=== PATIENT | female | born 1935 | race Caucasian/White ===

== ENCOUNTER 2018-09-15 08:24 | Inpatient (IN) | payer MEDICARE ==
[~2018-09-15] VITALS: Ht 162.6 cm; Wt 63.5 kg
[~2018-09-15 08:24] MED LIST: ASPIRIN325 MG PO; LANOXIN125 MCG PO; PLAVIX75 MG PO; TUMS500 MG PO
[2018-09-15 08:48] LABS: BASOPHILS 0.3 % (0-2); EOSINOPHILS 2.8 % (0-7); HEMATOCRIT 45.3 % (36.0-48.0); HEMOGLOBIN 15.4 g/dL (12-16); IMMATURE GRANULOCYTES 0.3 % (0-5); MCH 28.7 pg (26.0-34.0); MCV 84.4 fL (80.0-100.0); MEAN PLATELET VOLUME 10.9 fL (7.4-10.4); MONOCYTES 5.4 % (2-11); NEUTROPHILS 67.2 % (40-80); RBC 5.37 10x6/uL (4.00-5.40); RDW 13.5 % (11.5-14.5); WBC 3.5 10x3/uL (4.8-10.8)
[2018-09-15 08:50] LABS: PLATELET COUNT 179 10x3/uL (130-400)
[2018-09-15 09:09] LABS: ALBUMIN 3.5 g/dL (3.4-5.0); ALKALINE PHOSPHATASE 97 U/L (46-116); ALT (SGPT) 19 U/L (10-68); BILIRUBIN - TOTAL 1.39 mg/dL (0.2-1.3); CALC OSMOLALITY 285 mosm/kg (275-300); CARBON DIOXIDE 28.6 mmol/L (21.0-32.0); CHLORIDE - SERUM 106 mmol/L (98-107); CREATININE - SERUM 0.9 mg/dL (0.6-1.3); GLUCOSE 100 mg/dL (74-106); PROTEIN - SERUM 7.3 g/dL (6.4-8.2); SODIUM 143 mmol/L (136-145); UREA NITROGEN 15 mg/dL (7-18); eGFR NON AFRICAN AMERICAN 63 mL/min (90-120)
[2018-09-15 09:20] LABS: CREATINE KINASE 85 UL (21-215); LIPASE 105 U/L (73-393); PRO BNP 385 pg/mL (0-450); THYROID STIMULATING HORMONE 5.11 uIU/mL (0.36-3.74); TROPONIN-I < 0.017 ng/mL (0.000-0.060)
[2018-09-15 09:31] LABS: UDS - AMPHET NEGATIVE QUAL (NEGATIVE); UDS - BARB NEGATIVE QUAL (NEGATIVE); UDS - BENZO NEGATIVE QUAL (NEGATIVE); UDS - COCAINE NEGATIVE QUAL (NEGATIVE); UDS - OPIATE NEGATIVE QUAL (NEGATIVE); UDS - PCP NEGATIVE QUAL (NEGATIVE); UDS - THC NEGATIVE QUAL (NEGATIVE)
[2018-09-15 09:36] VITALS: BP 190/73
[2018-09-15 10:05] LABS: APPEARANCE CLEAR (CLEAR); BILIRUBIN NEGATIVE (NEGATIVE); COLOR YELLOW (YELLOW); GLUCOSE NEGATIVE (NEGATIVE); KETONE NEGATIVE (NEGATIVE); NITRITE POSITIVE (NEGATIVE); PROTEIN NEGATIVE (NEGATIVE); UROBILINOGEN NORMAL (NORMAL)
[2018-09-15 10:06] LABS: BACTERIA MODERATE /hpf (NONE SEEN); EPITHELIAL CELLS RARE /hpf (0-5); RED CELLS - URINE RARE /hpf (0-5); WHITE CELLS - URINE RARE /hpf (0-5)
[2018-09-15] MEDS ORDERED: LISINOPRIL10 MG PO (14:24)
[2018-09-15] MEDS ORDERED: XANAX1 MG PO (14:24)
[2018-09-15] MEDS ORDERED: NORVASC5 MG PO (14:29)
[2018-09-15 17:19] VITALS: BP 209/87; BMI 24.1
[2018-09-15 21:00] VITALS: BP 174/66
[2018-09-16 06:21] LABS: ALBUMIN 3.1 g/dL (3.4-5.0); ALKALINE PHOSPHATASE 84 U/L (46-116); ALT (SGPT) 15 U/L (10-68); BILIRUBIN - TOTAL 1.02 mg/dL (0.2-1.3); CALC OSMOLALITY 286 mosm/kg (275-300); CALCIUM 8.7 mg/dL (8.5-10.1); CARBON DIOXIDE 26.7 mmol/L (21.0-32.0); CHLORIDE - SERUM 106 mmol/L (98-107); CHOL - HDL RATIO 3.2 ratio (2.3-4.1); CHOLESTEROL, TOTAL 214 mg/dL (0-200); CREATININE - SERUM 0.9 mg/dL (0.6-1.3); GLUCOSE 106 mg/dL (74-106); HDL CHOLESTEROL 66 mg/dL (32-96); LDL CHOLESTEROL 125 mg/dL (0-100); LDL-HDL RATIO 1.9 ratio (1.5-3.5); POTASSIUM - SERUM 3.7 mmol/L (3.5-5.1); PROTEIN - SERUM 6.6 g/dL (6.4-8.2); SODIUM 143 mmol/L (136-145); THYROID STIMULATING HORMONE 3.84 uIU/mL (0.36-3.74); TRIGLYCERIDE 117 mg/dL (30-200); UREA NITROGEN 18 mg/dL (7-18); eGFR NON AFRICAN AMERICAN 63 mL/min (90-120)
[2018-09-16 06:59] LABS: DIGOXIN < 0.20 ng/mL (0.90-2.00)
[2018-09-16 08:00] VITALS: BP 162/75
[2018-09-16 08:05] VITALS: BMI 24.0
[2018-09-16 11:07] VITALS: Ht 162.6 cm; Wt 63.5 kg
[2018-09-16 20:23] VITALS: BP 140/75
[2018-09-17 07:16] LABS: FOLATE (FOLIC ACID) - SERUM 18.5 ng/mL (>3.0)
[2018-09-17 09:00] VITALS: BP 169/76
[2018-09-17 10:19] VITALS: BP 169/76
--- NOTE | 2018-09-17 14:20 | PSY ---
PATIENT NAME:AMISH LOBATO MEDICAL RECORD: [id number] : 37 LOCATION:[facility] ADMISSION DATE: 09/15/18 ACCOUNT: [id number] PSYCHIATRIC EVALUATION DATE OF EVALUATION: 09/16/18 IDENTIFYING DATA: The patient is 83 years old and she is admitted to the hospital on a voluntary basis. CHIEF COMPLAINT: Hallucinations. HISTORY OF PRESENT ILLNESS: The patient has been calling the police. She is calling the police and reporting that she is seeing people prowling around her house or property. The police cannot find any evidence of this. They had been called multiple times by this woman for reasons that do not appear to be completely imaginary. The police finally called the EMS services and the patient was seen to be actively hallucinating both visually and auditorily. The patient does have a history of schizophrenia and has been noncompliant with her medications. She has a son who lives with her and apparently he is disabled as well. She has not been receiving her medications and does not know what they are. She also is clearly impaired cognitively in addition to having an apparent history of mental illness. PAST MEDICAL HISTORY: Significant for hypertension and congestive heart failure. PAST PSYCHIATRIC HISTORY: Significant for a history of schizophrenia, but she does not relate previous history of psychiatric treatment to me. FAMILY HISTORY: Negative for mental illness by her account. ALLERGIES: No known drug allergies. CURRENT MEDICATIONS: Include Zestril, aspirin, Norvasc, Lanoxin, Plavix, and Xanax. SOCIAL HISTORY: The patient is . She has 3 adult children and one of them lives locally and she lives with him or he lives with her. She denies a history of drug or alcohol abuse. MENTAL STATUS EXAMINATION: The patient is awake, alert, and oriented to person and place, but not to time or situation. She does not know the date and she is confused about the circumstances that brought her here. She has a mood that is flat and an affect that is constricted. Thought processes are circumstantial. Memory, concentration, and abstraction abilities are moderately impaired. She denies any active intent to harm herself or others as well as any current psychotic symptoms. ASSETS: Supportive family members. LIABILITIES: Limited insight. 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 AXIS II: None. AXIS III: Hypertension and congestive heart failure. AXIS IV: Moderate. AXIS V: Global assessment of functioning is 35. PLAN: At this time, the patient is admitted to the hospital secondary to psychotic symptoms, which are associated with either a thinking disorder such as schizophrenia or a dementia such as Alzheimer's. I am not sure which condition is most closely related to the psychotic symptoms, but I am certain that she also has a dementing illness whether or not she has any other condition. She seems to genuinely not have any knowledge of her psychiatric history, yet it is listed in the Emergency Room as her having a long history of schizophrenia. I am not sure where that information was obtained. At this point, I am going to start her on a low dose of an antipsychotic medicine to assist with her thought disorganization. She will be monitored for clinical changes. Her long-term prognosis is guarded. TRANSINT:[id number] Voice Confirmation ID: [id number] DOCUMENT ID: [id number] XIOMARA CORONA MD at 1420 CC: [id number] DICTATION DATE: 09/16/18 1540 OPTOMETRIST ASSISTANT: 09/16/18 1633 ADM IN [facility] [address] [place] [address]
[2018-09-17 20:05] VITALS: BP 121/80
[2018-09-18 08:45] VITALS: BP 174/59
--- NOTE | 2018-09-18 15:29 | PN ---
PATIENT:AMISH LOBATO MEDICAL RECORD: [id number] LOCATION:[facility] ADMISSION DATE: 09/15/18 PROGRESS NOTE DATE OF SERVICE: 09/17/2018 SUBJECTIVE: The patient's case was discussed with staff. She has no new complaint. OBJECTIVE: The patient is not showing any overt psychotic symptoms today. She has limited insight about her condition. She does tell me that her son came to live with her 6 years ago, it was supposed to be temporary, but he has been there for 6 years. She tells me that her son refuses to leave even though she has asked him to do so. She says that she is afraid of him that he drinks heavily, smokes marijuana, and mistakes or overtakes his prescription medications. She says he often becomes angry, yells, curses, even breaks things in the house, but she says he has not assaulted her. She very much wants him to leave. ASSESSMENT: No change in diagnoses. PLAN: The patient will be started on Aricept for its memory enhancing properties. I am going to discuss the situation with her son at our next treatment team meeting to see what can be done if anything. I suspect that a call to the adult foundry worker general for the [facility] would probably be in order. TRANSINT:[id number] Voice Confirmation ID: [id number] DOCUMENT ID: [id number] XIOMARA CORONA MD at 1529 CC: [id number] DICTATION DATE: 09/17/18 1446 PERFORMANCE ARCHITECT: 09/17/18 1457 ADM IN [address] [place] [address]
[2018-09-18 19:46] VITALS: BP 152/61
[2018-09-19 08:00] VITALS: BP 131/64
--- NOTE | 2018-09-19 13:46 | PN ---
PATIENT:MI LOBATO MEDICAL RECORD: [id number] LOCATION:[facility] ADMISSION DATE: 09/15/18 PROGRESS NOTE DATE OF SERVICE: 09/18/2018 SUBJECTIVE: The patient's case was discussed with staff. She has no new complaints. OBJECTIVE: The patient is only partially oriented. She is wanting to go home, but says that she will agree to stay and allow me to treat her. She just wants to go home as soon as it is reasonably possible. Of course, this is true of every patient. This is included in this dictation because apparently the patient's son who is mentally ill is calling administration and saying we are holding her against her, which is just simply not true. This is the same man who called and wanted to our social service assistant after first telling her that he was going to have the FBI shut down the hospital. Clearly, he is impaired. The patient Mi Lobato says that her son is overtaking his psychiatric medicines, drinking excessively, and that she is afraid of him. Adult protective services is involved in the case at this point. She says he has never actually hurt her, but she is afraid of him because when he becomes intoxicated he yells, he screams, he curses, and he hit his hand and fist against the cabinet table and caraballo and sometimes even breaks things in the house. She says she has called the police to have him removed, but the police have told her that she just needs to tell him to go which she is afraid to do because of how he might react. She was observed yesterday talking to persons not present and behaving in a paranoid and suspicious way. She is only partially oriented. She has a concrete abstraction. She has impaired short term and long-term memory and her thought processes are disorganized. ASSESSMENT: The patient clearly has dementia. I believe it is of the Alzheimer's type. PLAN: I am not entirely sure the patient has a thinking disorder. When questioned about schizophrenia and other psychiatric treatment, she denies it. She has a few symptoms that would be consistent with schizophrenia, but they would also be possible to have when a person is also demented. Whether or not she has schizophrenia is still something of a mystery. I only saw this mentioned in a dictation from the Emergency Room. Her son who is completely unreliable denies it. She also denies it. Nevertheless, she clearly has a dementia. I believe it is of the Alzheimer's type. I do not believe she is capable of making reasonable informed consent decisions and I do not think it is safe for her to be at home with this man that she is afraid of. Again, the proper authorities are being notified. If she can abstain from any bizarre psychotic symptoms another day, I will release her. Followup would need to be with her primary care physician or outpatient psychiatrist. I am going to keep her on the antipsychotic medications, having weighed the relative risk and benefit of it. I also have her on a cholinesterase inhibitor for her memory impairment. TRANSINT:[id number] Voice Confirmation ID: [id number] DOCUMENT ID: [id number] PROGRESS NOTE [id number] MI LOBATO, XIOMARA LOZANO at 1346 CC: [id number] DICTATION DATE: 09/18/18 1551 SUPERVISOR BOATBUILDERS WOOD: 09/18/18 2352 ADM IN [facility] [address] [place] [address]
[2018-09-19 21:16] VITALS: BP 118/49
[2018-09-20 08:00] VITALS: BP 186/74
--- NOTE | 2018-09-20 11:13 | PN ---
PATIENT:AMISH LOBATO MEDICAL RECORD: [id number] LOCATION:[facility] ADMISSION DATE: 09/15/18 PROGRESS NOTE DATE OF SERVICE: 09/19/2018 SUBJECTIVE: The patient's case was discussed with staff. She has no new complaint. OBJECTIVE: The patient is not eating very well, but I am going to wait and observe this a little longer before I start to give her Megace. She slept 11 hours last night, which is a little excessive. I am not sure if it is related to this very low dose of Klonopin, but I am going to observe that as well. She is very anxious to go home, but is not demanding to do so and when I explained to her what I am going to do and why, she is very agreeable to staying. Her son on the other hand is problematic. He calls here numerous times a day and often behaves in a very bizarre and inappropriate manner. She continues to say that he has not assaulted her, but that she is afraid of him for reasons that I have already documented. He drinks too much. He overtakes his psychiatric medicines. He becomes angry and has outbursts where he breaks things in the house, curses at her, beats his hand or fist on the caraballo or cabinets and this is quite distressing to her. She wants him out of the house, but does not know how to make that happen. She says she has called the Dividing Machine Operator's Department or the police and they have not really been helpful at least as far as what she says or how she sees it. TRANSINT:[id number] Voice Confirmation ID: [id number] DOCUMENT ID: [id number] XIOMARA CORONA MD at 1113 CC: [id number] DICTATION DATE: 09/19/18 1510 OPERATIONS SUPPORT PROFESSIONALS: 09/19/18 2140 ADM IN [place] [id number] [place] [address]
[2018-09-20 22:06] VITALS: BP 132/70
--- NOTE | 2018-09-21 13:23 | PN ---
PATIENT:AMISH LOBATO MEDICAL RECORD: [id number] LOCATION:[facility] ADMISSION DATE: 09/15/18 PROGRESS NOTE DATE OF SERVICE: 09/20/2018 SUBJECTIVE: The patient's case was discussed with staff. She has no new complaint. OBJECTIVE: The patient is eating reasonably well, but is not taking her medications. When asked about this, she cannot give an explanation except to say she thinks she is on too much medicine; but when asked about anyone in particular where I offered to review them with her, she declines. Unfortunately, I think she probably has a history of not taking her medications. It is probably something that she regularly does at home. This is problematic given her lack of supervision and her dementia. I am going to reduce the dose of her Xanax slightly. Her long-term prognosis is guarded. TRANSINT:[id number] Voice Confirmation ID: [id number] DOCUMENT ID: [id number] XIOMARA CORONA MD at 1323 CC: [id number] DICTATION DATE: 09/20/18 1121 BUILDING MAINTENANCE TECHNICIAN: 09/20/18 1532 ADM IN [facility] [address] [place] [id number]
--- NOTE | 2018-09-22 10:58 | PN ---
PATIENT:AMISH LOBATO MEDICAL RECORD: [id number] LOCATION:[facility] ADMISSION DATE: 09/15/18 PROGRESS NOTE DATE OF SERVICE: 09/21/2018 The patient's case was discussed with staff. She has no new complaint. The patient is partially oriented but not aggressive and is not showing any psychotic symptoms today. She continues to say that she is afraid of her son and wants him out of her house, just she said before. The son has shown up today and asked that his mother be discharged to him. She has been asked about this and says yes she wants to go home with him. I am not sure how to reconcile this since she has been saying that she wants him out of the house and that she is afraid of him that he has not actually assaulted her, but he gets drunk and yells and beats on the wall or breaks things and she is frightened of him, but he has not assaulted her or threatened her. Nevertheless, she wants to go home with him. She is saying this with him off the unit and being told that he can be kept off the unit and she can be protected from him, but she still wants to go home. She is clearly impaired in a very serious manner. I am not at all happy about the home situation with a man who is clearly mentally ill. He has asked one of our staff members to him. He has asked another to go away on a trip with him and he sent a nurse pena today. Asking about marriage and going on trips were contextually not a joke even if it is inappropriate and not a funny joke. This man is clearly mentally ill and was serious with these offers. Discussing the situation with the treatment team. I have decided that I am going to let her go home, but it will be against medical advice. I do not think she currently meets criteria for an involuntary commitment and involving adult protective services is something that I will have to do as an outpatient. I am going to make a report to adult protective services regarding her and ask for a home visit. She may well reappear here in the future since one of the things she was doing was repeatedly calling the police about things that were delusional or confused. I do not think she is going to take her medicines in a consistent way and leaving against medical advice she is not going to receive prescriptions or followup. She understands all these things or at least they have been told to her and she says she understands them and she still wants to go home with her son. She will be discharged today against medical advice. TRANSINT:[id number] Voice Confirmation ID: [id number] DOCUMENT ID: [id number] XIOMARA CORONA MD at 1058 CC: [id number] DICTATION DATE: 09/21/181416 TIRE TESTER: 09/21/18 2300 DIS IN 09/21/18 [id number] [place] [address]
--- NOTE | 2018-09-24 15:00 | DS ---
PATIENT:AMISH LOBATO :37 MEDICAL RECORD: [id number] DISCHARGE SUMMARY ADMISSION DATE: 09/15/18 DISCHARGE DATE: 09/21/18 IDENTIFYING DATA: The patient is 83 years old and she is admitted to the hospital on a voluntary basis because of hallucinations. HISTORY OF PRESENT ILLNESS: The patient has been calling the police and reporting that she is seeing people prowling about her house or yard. The police cannot find any evidence of this. She has apparently called the police multiple times for reasons that appear to be entirely imaginary. The police have called an ambulance and they brought her to the Emergency Room where she was actively responding to visual and auditory hallucinations and she was subsequently referred to us. There is documentation from the Emergency Room physician that she has a history of schizophrenia, but I cannot confirm that and she actually denies it. The patient was admitted to the hospital for evaluation and treatment. HOSPITAL COURSE: The patient was admitted to the hospital and fully evaluated from both a medical, psychological, and social standpoint. She had clear evidence of cognitive impairment of a progressive nature entirely consistent with an Alzheimer dementia. Based upon this and the type of delusions and hallucinations she has and her denial of any previous psychiatric treatment and her sincere puzzlement about never having even heard the word schizophrenia, I believe that the patient is not chronically mentally ill, but suffering from a dementia of the Alzheimer's type. Furthermore, she very quickly lost the psychotic symptoms when she was in a supportive and structured environment and continued to show evidence of cognitive impairment, further substantiating my belief that the symptoms are related to a progressive dementia and not an underlying thinking disorder. The patient did indicate on multiple occasions that she has an adult son living with her and that he is mentally ill that he does not take his medicines on occasion and that on other occasions, he overtakes them and consumes alcohol with them. He also becomes very angry. She says he has never threatened her or assaulted her and she was asked about this multiple times. She does say that she is afraid of him because he becomes so angry and often will curse or pound his hand or fists on the table or caraballo and on occasion he has even broken things in the house when he was in a rage. She wants him to leave the house. The treatment team was in the process of trying to assist her with this when she decided she wanted to be discharged to his care. It was explained to her that this was not recommended, but she insisted and she was subsequently discharged from the hospital against medical advice since there was not a commitment criteria based upon [place] statute and there was no evidence that she was in acute eminent danger since she had repeatedly stated that he had never abused her, threatened her, or even injured her. It is just that his behaviors frighten her. 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 AXIS II: None. AXIS III: Hypertension, congestive heart failure. AXIS IV: Moderate. AXIS V: Global assessment of functioning 40. PLAN: At the time of discharge, the patient was in good behavioral control and showed no evidence of acute or direct dangerousness to herself or others. She DISCHARGE SUMMARY REPORT [id number] AMISH LOBATO is going to be reported to adult protective services, so that they can perform a home welfare check. Again, the psychotic symptoms have disappeared. The son, who is bizarre, is not threatening her and has never assaulted her or threatened her and there is no evidence that he mistreats her or abuses her and so she was discharged to his care because that is what she wanted. Because she was discharged against medical advice, she was not given prescriptions and she will be responsible for finding her own followup care. There already has been a report made to adult protective services. TRANSINT:[id number] Voice Confirmation ID: [id number] DOCUMENT ID: [id number] XIOMARA CORONA MD at 1500 CC: [id number] DICTATION DATE: 09/23/[address] MARKER INSTALLER: 09/23/18 2321 DIS IN 09/21/[address] [facility] [address] [place] [id number]
== END 2018-09-21 09:25 | disposition left against medical advice (07) | DRG 57 ==
LOC: D.ER 08:24 → D.PSYCH 10:35
PROVIDERS: Family Medicine; ADMIT Psychiatry & Neurology Psychiatry
DX: G30.1 Alzheimer's disease with late onset (principal); F02.81 Dementia in other diseases classified elsewhere, unspecified severity, with behavioral disturbance; F01.51 Vascular dementia, unspecified severity, with behavioral disturbance; N39.0 Urinary tract infection, site not specified; I69.319 Unspecified symptoms and signs involving cognitive functions following cerebral infarction; E03.9 Hypothyroidism, unspecified; E78.5 Hyperlipidemia, unspecified; I11.0 Hypertensive heart disease with heart failure; I50.9 Heart failure, unspecified; F20.9 Schizophrenia, unspecified; F41.9 Anxiety disorder, unspecified

== ENCOUNTER 2019-02-10 13:21 | Emergency (ER) | payer MEDICARE, MEDICAID ==
[~2019-02-10] VITALS: Ht 162.6 cm; Wt 75.0 kg
[~2019-02-10 13:21] MED LIST changes: +LISINOPRIL10 MG PO; +NORVASC5 MG PO; +XANAX1 MG PO
[2019-02-10 13:33] VITALS: BP 182/73; Ht 162.6 cm; Wt 75.0 kg
[2019-02-10] MEDS ORDERED: CELEXA20 MG PO (14:23)
[2019-02-10] MEDS ORDERED: PRINIVIL10 MG PO (14:23)
[2019-02-10] MEDS ORDERED: DEBROX OTIC15 ML LEFT EAR (14:23)
== END 2019-02-10 15:17 | disposition home or self-care (01) ==
LOC: D.ER 13:21
DX: F41.9 Anxiety disorder, unspecified (principal); I10 Essential (primary) hypertension; H61.22 Impacted cerumen, left ear; H93.19 Tinnitus, unspecified ear

== ENCOUNTER 2021-01-10 13:46 | Inpatient (IN) | payer MEDICARE ==
[~2021-01-10] VITALS: Ht 162.6 cm; Wt 63.5 kg
[~2021-01-10 13:46] MED LIST changes: +CELEXA20 MG PO; +DEBROX OTIC15 ML LEFT EAR; +PRINIVIL10 MG PO
[2021-01-10 14:52] LABS: BILIRUBIN NEGATIVE (NEGATIVE); KETONE NEGATIVE (NEGATIVE); NITRITE POSITIVE (NEGATIVE); UROBILINOGEN NORMAL mg/dL (< 2)
[2021-01-10 15:00] LABS: BACTERIA MANY HPF (NONE SEEN); SQUAMOUS EPITHELIAL 0-5 HPF (0-4); WHITE CELLS - URINE 0-5 HPF (0-4)
[2021-01-10 15:04] LABS: CALC OSMOLALITY 281 mosm/kg (275-300); CALCIUM 9.8 mg/dL (8.5-10.1); CARBON DIOXIDE 25.9 mmol/L (21.0-32.0); CHLORIDE - SERUM 104 mmol/L (98-107); CREATININE - SERUM 1.1 mg/dL (0.6-1.3); GLUCOSE 112 mg/dL (74-106); POTASSIUM - SERUM 3.6 mmol/L (3.5-5.1); SODIUM 139 mmol/L (136-145); UREA NITROGEN 21 mg/dL (7-18); eGFR NON AFRICAN AMERICAN 50 mL/min (90-120)
[2021-01-10 15:07] LABS: BASOPHILS 0 % (0-2); EOSINOPHILS 2.2 % (0-7); HEMATOCRIT 40.3 % (36.0-48.0); HEMOGLOBIN 13.1 g/dL (12-16); LYMPHOCYTE ABS# 0.83 10x3/uL (1.18-3.74); LYMPHOCYTES 20.7 % (15-50); MCH 26.5 pg (26.0-34.0); MCHC 32.5 g/dL (31.0-37.0); MCV 81.6 fL (80.0-100.0); MEAN PLATELET VOLUME 10.6 fL (7.4-10.4); MONOCYTES 8.7 % (2-11); NEUTROPHIL ABS# 2.74 10x3/uL (1.56-6.13); NEUTROPHILS 68.4 % (40-80); RBC 4.94 10x6/uL (4.00-5.40); RDW 14.5 % (11.5-14.5)
[2021-01-10 15:10] LABS: APTT 29.4 SECONDS (22.8-39.4); INR 1.12 (0.85-1.17); PLATELET COUNT 233 10x3/uL (130-400); PROTIME 13.3 SECONDS (11.6-15.0)
[2021-01-10 15:16] VITALS: BP 214/66
[2021-01-10 15:17] VITALS: BP 205/68
[2021-01-10 15:19] LABS: ALBUMIN 3.1 g/dL (3.4-5.0); ALKALINE PHOSPHATASE 91 U/L (30-120); ALT (SGPT) 15 U/L (10-68); BILIRUBIN - TOTAL 0.87 mg/dL (0.2-1.3); CKMB 0.8 U/L (0.0-3.6); CREATINE KINASE 30 UL (21-215); MAGNESIUM - SERUM 2.1 mg/dL (1.8-2.4); PROTEIN - SERUM 7.4 g/dL (6.4-8.2); TROPONIN-I < 0.017 ng/mL (0.000-0.060)
[2021-01-10 16:16] LABS: UDS - AMPHET NEGATIVE QUAL (NEGATIVE); UDS - BARB NEGATIVE QUAL (NEGATIVE); UDS - BENZO NEGATIVE QUAL (NEGATIVE); UDS - COCAINE NEGATIVE QUAL (NEGATIVE); UDS - OPIATE NEGATIVE QUAL (NEGATIVE); UDS - PCP NEGATIVE QUAL (NEGATIVE); UDS - THC NEGATIVE QUAL (NEGATIVE)
[2021-01-10 20:19] VITALS: BP 158/49; BMI 24.0
--- NOTE | 2021-01-10 20:56 | NUR ---
COMPLETED ADDMISSION ASSES AND H/O WELL POSSIBLE, PT VERY POOR HISTORIAN. FALL PRECAUTIONS IN PLACE, BED ALARM ON, TI ON, YELLOW BRACLET, YELLOW GOWN ON. SCD'S ON AND ISP AT BEDSIDE.
[2021-01-11 04:00] VITALS: BP 135/60
[2021-01-11 06:28] LABS: BASOPHILS 0.3 % (0-2); EOSINOPHILS 2.3 % (0-7); HEMOGLOBIN 11.9 g/dL (12-16); LYMPHOCYTE ABS# 0.61 10x3/uL (1.18-3.74); LYMPHOCYTES 17.7 % (15-50); MCH 26.1 pg (26.0-34.0); MCHC 32.2 g/dL (31.0-37.0); MCV 81.1 fL (80.0-100.0); MEAN PLATELET VOLUME 10.9 fL (7.4-10.4); MONOCYTES 11.6 % (2-11); NEUTROPHIL ABS# 2.34 10x3/uL (1.56-6.13); NEUTROPHILS 68.1 % (40-80); PLATELET COUNT 229 10x3/uL (130-400); RBC 4.56 10x6/uL (4.00-5.40); RDW 14.4 % (11.5-14.5); WBC 3.4 10x3/uL (4.8-10.8)
[2021-01-11 06:42] LABS: ALBUMIN 2.5 g/dL (3.4-5.0); ANION GAP 14.5 mmol/L (8-16); BILIRUBIN - TOTAL 0.58 mg/dL (0.2-1.3); CALCIUM 8.8 mg/dL (8.5-10.1); MAGNESIUM - SERUM 2.1 mg/dL (1.8-2.4); POTASSIUM - SERUM 3.5 mmol/L (3.5-5.1); PROTEIN - SERUM 6.3 g/dL (6.4-8.2)
--- NOTE | 2021-01-11 07:24 | NUR ---
PATIENT SAYS HER SON GIVES HER TOO MUCH MEDICINE AND IS ON DRUGS. DAUGHTER IS SYDNIE AND CAN COMMUNICATE HER NEEDS. SHE IS RESTING IN BED AT THIS TIME.
[2021-01-11 09:12] VITALS: BP 145/58
[2021-01-11 13:46] VITALS: BP 142/56
[2021-01-11 14:42] VITALS: BMI 24.0
[2021-01-11 17:33] VITALS: BP 164/53
[2021-01-11 23:19] VITALS: BP 180/100
--- NOTE | 2021-01-12 01:34 | NUR ---
PT WAS FOUND ON LAYING ON THE GROUND SAYING THAT THEY TOLD HER SHE NEEDED TO LAY ON THE FLOOR. SHE HAD SOME SORT OF ALUCINATION AND WAS ANXIOUS AND AGITATED. PT WAS HELPED TO STAND AND WALKED TO BED. I WAS ABLE TO GET PATIENT CLEAN DUE TO URINE AND BOWEL MOVEMENT IN HER OWN CLOTHES. PT APPROVED TO GET AN IV 20G PLACE IN HER RWRIST NS@75ML. MANUAL BP 180/100 TELESALES SUPERVISOR CONTACTED AND PRESCRIBED APRISOLINE TO BRING BP DOWN.
--- NOTE | 2021-01-12 05:14 | NUR ---
I have reviewed this patient and I concur with the Shift Assessment completed by the Licensed Practical Nurse today this shift.
[2021-01-12 05:29] LABS: BASOPHILS 0 % (0-2); HEMATOCRIT 34.4 % (36.0-48.0); HEMOGLOBIN 11.2 g/dL (12-16); IMMATURE GRANULOCYTES 0.3 % (0-5); LYMPHOCYTE ABS# 0.53 10x3/uL (1.18-3.74); LYMPHOCYTES 17.3 % (15-50); MCH 26.4 pg (26.0-34.0); MCHC 32.6 g/dL (31.0-37.0); MCV 81.1 fL (80.0-100.0); MEAN PLATELET VOLUME 10.8 fL (7.4-10.4); MONOCYTES 4.6 % (2-11); NEUTROPHIL ABS# 2.33 10x3/uL (1.56-6.13); NEUTROPHILS 75.8 % (40-80); PLATELET COUNT 211 10x3/uL (130-400); RBC 4.24 10x6/uL (4.00-5.40); RDW 14.6 % (11.5-14.5); WBC 3.1 10x3/uL (4.8-10.8)
[2021-01-12 05:53] LABS: ALBUMIN 2.6 g/dL (3.4-5.0); ANION GAP 15.4 mmol/L (8-16); BILIRUBIN - TOTAL 0.57 mg/dL (0.2-1.3); CALCIUM 8.5 mg/dL (8.5-10.1); CARBON DIOXIDE 20.5 mmol/L (21.0-32.0); CREATININE - SERUM 0.9 mg/dL (0.6-1.3); MAGNESIUM - SERUM 1.9 mg/dL (1.8-2.4); POTASSIUM - SERUM 3.9 mmol/L (3.5-5.1); PROTEIN - SERUM 5.6 g/dL (6.4-8.2)
--- NOTE | 2021-01-12 07:26 | NUR ---
RECIEVED BEDSIDE REPORT. IN BED RESTING. FREE FROM SIGNS OF DISTRESS. BED LOW POSITION, CALL LIGHT IN REACH. PT CONFUSED X4. TI ALARMON. WILL CONTINUE TO MONITOR.
[2021-01-12 10:42] VITALS: BP 148/53
[2021-01-12 13:29] VITALS: BP 157/57
[2021-01-12 17:41] VITALS: BP 128/90
[2021-01-12 20:35] VITALS: BP 163/54
--- NOTE | 2021-01-13 00:12 | NUR ---
I have reviewed this patient and I concur with the Shift Assessment completed by the Licensed Practical Nurse today this shift.
[2021-01-13 01:01] VITALS: BP 163/63
--- NOTE | 2021-01-13 01:01 | NUR ---
PT RESTING IN BED WITH EYES CLOSED. BED ALARM ON, NO SIGNS OF DISTRESS. PT HAS BEEN OFFERED MULTIPLE TIMES TO DRINK SOME WATER OR STAND TO THE RESTROOM AND SHE HAS DENIED. WILL CONT TO MONITOR.
[2021-01-13 05:53] VITALS: BP 153/52
[2021-01-13 07:11] LABS: BASOPHILS 0.3 % (0-2); EOSINOPHILS 3.6 % (0-7); HEMATOCRIT 38.3 % (36.0-48.0); HEMOGLOBIN 12.4 g/dL (12-16); IMMATURE GRANULOCYTES 0.3 % (0-5); LYMPHOCYTES 16.4 % (15-50); MCH 26.3 pg (26.0-34.0); MCHC 32.4 g/dL (31.0-37.0); MCV 81.1 fL (80.0-100.0); MEAN PLATELET VOLUME 10.3 fL (7.4-10.4); MONOCYTES 5.9 % (2-11); NEUTROPHIL ABS# 2.23 10x3/uL (1.56-6.13); NEUTROPHILS 73.5 % (40-80); RBC 4.72 10x6/uL (4.00-5.40); RDW 14.4 % (11.5-14.5)
[2021-01-13 07:18] LABS: PLATELET COUNT 257 10x3/uL (130-400)
[2021-01-13 07:37] LABS: ALBUMIN 2.7 g/dL (3.4-5.0); ANION GAP 13.9 mmol/L (8-16); BILIRUBIN - TOTAL 0.47 mg/dL (0.2-1.3); CREATININE - SERUM 1.1 mg/dL (0.6-1.3); MAGNESIUM - SERUM 1.9 mg/dL (1.8-2.4); POTASSIUM - SERUM 3.9 mmol/L (3.5-5.1); PROTEIN - SERUM 6.5 g/dL (6.4-8.2)
--- NOTE | 2021-01-13 07:37 | NUR ---
RECIEVED BEDSIDE REPORT. SITTING UP AT SIDE OF BED. TALKING TO SON ON TELEPHONE. DENIES NEEDS AT THIS TIME. BED LOW POSITION, CALL LIGHT IN REACH. WILL CONTINUE TO MONITOR.
[2021-01-13 08:52] VITALS: BP 139/77
[2021-01-13 11:45] VITALS: BP 139/52
--- NOTE | 2021-01-13 15:38 | NUR ---
HOME ENERGY AUDITOR LIGHT. UP TO BATHROOM, BACK TO BED. DENIES FURTHER NEEDS. WILL CONTINUE TO MONITOR.
[2021-01-13 16:50] VITALS: BP 139/55
[2021-01-14 05:20] LABS: BASOPHILS 0.3 % (0-2); EOSINOPHILS 5.6 % (0-7); HEMATOCRIT 36.1 % (36.0-48.0); HEMOGLOBIN 11.6 g/dL (12-16); IMMATURE GRANULOCYTES 0.3 % (0-5); LYMPHOCYTE ABS# 0.59 10x3/uL (1.18-3.74); LYMPHOCYTES 19.5 % (15-50); MCHC 32.1 g/dL (31.0-37.0); MCV 80.8 fL (80.0-100.0); MEAN PLATELET VOLUME 10.5 fL (7.4-10.4); MONOCYTES 6.6 % (2-11); NEUTROPHIL ABS# 2.05 10x3/uL (1.56-6.13); NEUTROPHILS 67.7 % (40-80); PLATELET COUNT 254 10x3/uL (130-400); RBC 4.47 10x6/uL (4.00-5.40); RDW 14.3 % (11.5-14.5)
[2021-01-14 05:52] LABS: ALBUMIN 2.5 g/dL (3.4-5.0); ANION GAP 13.1 mmol/L (8-16); BILIRUBIN - TOTAL 0.38 mg/dL (0.2-1.3); CALCIUM 8.8 mg/dL (8.5-10.1); CARBON DIOXIDE 23.6 mmol/L (21.0-32.0); MAGNESIUM - SERUM 1.8 mg/dL (1.8-2.4); POTASSIUM - SERUM 3.7 mmol/L (3.5-5.1)
--- NOTE | 2021-01-14 07:27 | NUR ---
RECIEVED BEDSIDE REPORT. IN BED SLEEPING, AROUSES TO VOICE. BED ALARM ON. BED LOW POSITION, CALL LIGHT IN REACH. FREE FROM SIGNS OF DISTRESS. WILL CONTINUE TO MONITOR.
[2021-01-14 10:56] VITALS: BP 100/49
--- NOTE | 2021-01-14 12:07 | NUR ---
SENT [facility], A TEXT PAGE ABOUT HOW PATIENT HEART RATE WOULD DROP INTO HIGH 50'S. ALSO NOTIFIED THAT DIGOXIN WAS HELD FOR HEART RATE OF 58. PATIENT FREE FROM SIGNS OF DISTRESS AT THIS TIME.
[2021-01-14 14:36] VITALS: BP 142/58
[2021-01-14 17:43] VITALS: BP 149/48
[2021-01-15 06:00] LABS: BASOPHILS 0.3 % (0-2); EOSINOPHILS 3.8 % (0-7); HEMATOCRIT 36.2 % (36.0-48.0); HEMOGLOBIN 11.7 g/dL (12-16); IMMATURE GRANULOCYTES 0.3 % (0-5); LYMPHOCYTE ABS# 0.65 10x3/uL (1.18-3.74); LYMPHOCYTES 19.2 % (15-50); MCH 25.9 pg (26.0-34.0); MCHC 32.3 g/dL (31.0-37.0); MCV 80.1 fL (80.0-100.0); MEAN PLATELET VOLUME 10.1 fL (7.4-10.4); MONOCYTES 5.9 % (2-11); NEUTROPHIL ABS# 2.38 10x3/uL (1.56-6.13); NEUTROPHILS 70.5 % (40-80); PLATELET COUNT 248 10x3/uL (130-400); RBC 4.52 10x6/uL (4.00-5.40); RDW 14.3 % (11.5-14.5); WBC 3.4 10x3/uL (4.8-10.8)
[2021-01-15 06:27] LABS: ALBUMIN 2.5 g/dL (3.4-5.0); ANION GAP 15.2 mmol/L (8-16); BILIRUBIN - TOTAL 0.39 mg/dL (0.2-1.3); CALCIUM 8.4 mg/dL (8.5-10.1); CARBON DIOXIDE 23.3 mmol/L (21.0-32.0); MAGNESIUM - SERUM 1.7 mg/dL (1.8-2.4); POTASSIUM - SERUM 3.5 mmol/L (3.5-5.1); PROTEIN - SERUM 5.6 g/dL (6.4-8.2)
[2021-01-15 08:52] VITALS: BP 178/56
--- NOTE | 2021-01-15 08:54 | CN ---
PATIENT NAME:AMISH LOBATO MEDICAL RECORD: [id number] : 37 LOCATION:D[facility]27 ADMIT DATE: 01/10/21 ACCOUNT: [id number] CONSULTING PHYSICIAN: XIOMARA CORONA MD REFERRING PHYSICIAN: DARWIN BLACK MD DATE OF CONSULTATION: 01/11/2021 IDENTIFYING DATA: The patient is 85 years old and she was admitted to the hospital secondary to confusion. CHIEF COMPLAINT: None. HISTORY OF PRESENT ILLNESS: The patient is a very nice elderly woman. Her first language apparently is Portuguese, but she does speak Irish, but she will start talking and then lapse into Portuguese, but with redirection she goes back to Irish. She is interviewable. She clearly is impaired cognitively and it is not a new process and it is advanced. I do not see any evidence that she has been diagnosed with dementia, but it is present. She has no aggressive behavior, no thoughts of harming herself and others and there was some difficulty trying to communicate hallucinations to her, but there is no evidence that she is having hallucinations either. Based on this, she does not meet criteria for an inpatient mental health stay. ASSESSMENT: Major neurocognitive disorder. PLAN: The patient's lack of direct active dangerousness to herself is unfortunately not going to allow me to refer to admit her to the behavioral unit. She most certainly has a dementia, most certainly is probably adversely impacted by her urinary tract infection and then there are bigger questions that need to be decided and looked into from a healthcare social worker standpoint. She is . She told me the name of a man that lives with her, but I think that is her son. She needs assistance with supervision and care and medications and monitoring and these are certainly very important things to her safety, but they do not alone allow me to justify her admission to behavioral unit. If there are additional factors that I am not aware of that might justify her admission, please reconsult. I am going to start her on medication for her dementia. vice president consulting services would again be the most appropriate route to ensure that she is receiving the proper care. TRANSINT:[id number] Voice Confirmation ID: [id number] DOCUMENT ID: [id number] XIOMARA CORONA MD at 0854 CC: [id number] DICTATION DATE: 01/11/21 1645 WINDOW AND DOOR INSTALLER: 01/11/212035 ADM IN [facility] [address] [place] [id number]
--- NOTE | 2021-01-15 10:05 | NUR ---
PT RESTING QUIETLY IN BED. RESP EVEN AND UNLABORED. IV TO RIGHT FOREARM WITH NS @ 75ML/HR INFUSING VIA PUMP. SITE WITHOUT REDNESS OR EDEMA. DENIES PAIN AT THIS TIME. PT AM MEDS ADMINISTERED AT THIS TIME. PT DINA WELL. DENIES FURTHER NEEDS AT THIS TIME. CL WITHIN REACH. ENCOURAGED TO CALL WITH NEEDS. CONTINUE POC
[2021-01-15 11:13] VITALS: Ht 162.6 cm; Wt 63.5 kg
[2021-01-15 12:48] VITALS: BP 167/58
--- NOTE | 2021-01-15 13:45 | NUR ---
Nutrition follow-up: Visited with pt during RD rounds. Pt c/o pump beeping; reports she has a good appetite an ate a good breakfast. Diet order: Low soium PO intake ~25% of meals recorded Labs reviewed Wt: 140# +BM Will continue to provide food choices and honor food preferences. RDN will order Ensure BID Follow-up: 01/18/21
[2021-01-15 16:51] VITALS: BP 148/73; BP 160/53
[2021-01-15 20:00] VITALS: BP 177/61
--- NOTE | 2021-01-15 23:37 | NUR ---
Assumed care of pt after report/rounds. Pt remains confused on situation. Pt teaching regarding safety. Pt remains confused and speaks both peruvian and brazilian and then blends the two. There was a lady from [place] calling to check on pt. This nurse did verify pt here and they are stable. Caller requested more information and this nurse did not find callers name or information in pt chart. Did explain to caller that her information was not in chart and this nurse could give no further information. Caller requested to speak to charge nurse and same done.
[2021-01-16 04:00] VITALS: BP 184/64
[2021-01-16 07:10] LABS: BASOPHILS 0.3 % (0-2); EOSINOPHILS 2.9 % (0-7); HEMATOCRIT 36.2 % (36.0-48.0); HEMOGLOBIN 11.9 g/dL (12-16); IMMATURE GRANULOCYTES 0.3 % (0-5); LYMPHOCYTE ABS# 0.63 10x3/uL (1.18-3.74); LYMPHOCYTES 18.3 % (15-50); MCH 26.3 pg (26.0-34.0); MCHC 32.9 g/dL (31.0-37.0); MCV 79.9 fL (80.0-100.0); MEAN PLATELET VOLUME 10.8 fL (7.4-10.4); MONOCYTES 5.8 % (2-11); NEUTROPHIL ABS# 2.49 10x3/uL (1.56-6.13); NEUTROPHILS 72.4 % (40-80); PLATELET COUNT 280 10x3/uL (130-400); RBC 4.53 10x6/uL (4.00-5.40); RDW 14.5 % (11.5-14.5); WBC 3.4 10x3/uL (4.8-10.8)
[2021-01-16 07:24] LABS: ALBUMIN 2.7 g/dL (3.4-5.0); ANION GAP 13.4 mmol/L (8-16); BILIRUBIN - TOTAL 0.58 mg/dL (0.2-1.3); CALCIUM 8.8 mg/dL (8.5-10.1); CREATININE - SERUM 0.9 mg/dL (0.6-1.3); POTASSIUM - SERUM 3.4 mmol/L (3.5-5.1); PROTEIN - SERUM 6.1 g/dL (6.4-8.2)
--- NOTE | 2021-01-16 08:03 | NUR ---
PT RESTING QUIETLY IN BED. PT AROUSES STAFF ENTERS ROOM. PT STATES GOOD MORNING TO STAFF, THEN BEGINS MUMBLING, POSSIBLY SPEAKING [place] TO STAFF. TALKED WITH PT ENCOURAGING HER TO SPEAK [place]. PT THEN BEGINS SPEAKING IN [place], BUT ORIENTED ONLY TO PERSON AT THIS TIME. PT IS UNAWARE OF SITUATIONS, QUESTIONING WHERE SHE IS AT. PROVIDED REALITY ORIENTATION AT THIS TIME. DENIES PAIN AT THIS TIME. IV TO RIGHT FOREARM WITH NS @ 30ML/HR INFUSING VIA PUMP. SITE WITHOUT REDNESS OR EDEMA. PT DENIES NEEDS. TI BED ALARM IN PLACE AND ON. CL WITHIN REACH. ENCOURAGED TO CALL WITH NEEDS. CONTINUE POC
[2021-01-16 09:03] VITALS: BP 173/69
[2021-01-16] MEDS ORDERED: LANOXIN125 MCG PO (11:21)
[2021-01-16] MEDS ORDERED: PROTONIX40 MG PO (11:22)
[2021-01-16] MEDS ORDERED: HYDRALAZINE HCL10 MG PO (11:22)
[2021-01-16] MEDS ORDERED: FLORAJEN DIGES1 EACH PO (11:22)
[2021-01-16] MEDS ORDERED: OMNICEF300 MG PO (11:23)
[2021-01-16] MEDS ORDERED: GEODON20 MG PO (11:25)
--- NOTE | 2021-01-16 13:26 | MORECARE ---
CASE MANAGEMENT DISCHARGE SUMMARY PATIENT: AMISH LOBATO UNIT: [id number] ADM DATE: 01/10/21 AGE: 85 : 36 SEX: F ROOM/BED: D.2227 AUTHOR: JAMSHID,YUKI PHYSICIAN: REFERRING PHYSICIAN: DARWIN BLACK MD DATE OF SERVICE: 01/16/21 Case Management Discharge Planning Summary COMMENTS ENTERED DATE: 01/16/21 13:20 CT COMMENT TYPE: Discharge Planning REVIEWER: Delmy Palumbo I spoke with patient's son Brant about his mother coming home today. He stated that he is her pulmonary care nurse and they live together. He stated that he has a walker, cane, BSC, portable O2 and concentrator at home if she needs it. He does not have a car to come get her. CM will pay for her a taxi. I called the Taxi service and it will be $25.00 to get her to [address] [place] [address]. The nurse will call him when she is discharged and he will be waiting for her outside to help her in. He would like [facility]. He also stated that his sister was flying in tomorrow to help with their mom. He said that when his friend get off work he will have him drive him to [facility] to machine operator hop picker his mom's medication. He denies any other needs. Kaity Ward RN will send the referral over to [facility] REVIEW SUMMARY ANTICIPATED D/C DATE: EXPECTED LOS : CASE STATUS: DCP Initiated INITIAL REVIEW: 01/10/2021 INITIAL REVIEWER: Delmy Palumbo FINAL DISCHARGE DISPOSITION: : FINAL REVIEWER: FINAL REVIEW DATE: [facility] Focus Questions & Answers QUESTION: ANSWER : PROVIDER NETWORKING REVIEW DATE: 01/16/2021 SERVICE TYPE: Home Health Care REVIEWER: Kaity Ward PATIENT: AMISH LOBATO ENCOUNTER: [id number] MEDICAL RECORD#: [id number] ADMISSION DATE: 01/10/2021 DISCHARGE DATE: ATTENDING MD: DARWIN SERRANO : AGE: 85 MARITAL STATUS: D DC PLAN ID: [id number] FACILITY: [facility] PRINTED ON: 01/16/21 13:26 CT All edits/amendments must be made on the electronic document DICTATION DATE: 01/16/21 1326 ACETALDEHYDE CONVERTER OPERATOR: VIVIAN 01/16/21 1326 RPT#: [id number] DC DATE: STATUS: ADM IN [facility] [address] [place] [address] END OF REPORT
[2021-01-16 13:38] VITALS: BP 183/63
--- NOTE | 2021-01-16 14:16 | MORECARE ---
CASE MANAGEMENT DISCHARGE SUMMARY PATIENT: AMISH LOBATO UNIT: [id number] ADM DATE: 01/10/21 AGE: 85 : 36 SEX: F ROOM/BED: D.2227 AUTHOR: JAMSHID,DOC PHYSICIAN: REFERRING PHYSICIAN: DARWIN BLACK MD DATE OF SERVICE: 01/16/21 Case Management Discharge Planning Summary COMMENTS ENTERED DATE: 01/16/21 13:20 CT COMMENT TYPE: Discharge Planning REVIEWER: Delmy Palumbo I spoke with patient's son Brant about his mother coming home today. He stated that he is her personal care aid and they live together. He stated that he has a walker, cane, BSC, portable O2 and concentrator at home if she needs it. He does not have a car to come get her. CM will pay for her a taxi. I called the Taxi service and it will be $25.00 [facility] The nurse will call him when she is discharged and he will be waiting for her outside to help her in. He would like [facility]. He also stated that his sister was flying in tomorrow to help with their mom. He said that when his friend get off work he will have him drive him to [facility] to filler picker his mom's medication. He denies any other needs. Kaity Ward RN will send the referral over to [facility] REVIEW SUMMARY ANTICIPATED D/C DATE: EXPECTED LOS : CASE STATUS: DCP Initiated INITIAL REVIEW: 01/10/2021 INITIAL REVIEWER: Delmy Palumbo FINAL DISCHARGE DISPOSITION: : FINAL REVIEWER: FINAL REVIEW DATE: [facility] Focus Questions & Answers QUESTION: ANSWER : PROVIDER NETWORKING REVIEW DATE: 01/16/2021 SERVICE TYPE: Home Health Care REVIEWER: Kaity Ward REVIEW DATE: 01/16/2021 SERVICE TYPE: Home Health Care REVIEWER: Kaity Ward PATIENT: AMISH LOBATO ENCOUNTER: [id number] MEDICAL RECORD#: [id number] ADMISSION DATE: 01/10/2021 DISCHARGE DATE: ATTENDING MD: DARWIN SERRANO : AGE: 85 MARITAL STATUS: D DC PLAN ID: [id number] FACILITY: [facility] PRINTED ON: 01/16/21 14:16 CT All edits/amendments must be made on the electronic document DICTATION DATE: 01/16/211415 AIR INTELLIGENCE OFFICER: VIVIAN 01/16/211415 RPT#: [id number] DC DATE: STATUS: ADM IN [facility] [address] [place] [address] END OF REPORT
--- NOTE | 2021-01-17 08:06 | EC ---
PATIENT:AMISH LOBATO DATE OF SERVICE: 01/10/21 SEX: F MEDICAL RECORD: [id number] DATE OF : 37 LOCATION:[facility] AGE OF PATIENT: 85 ADMISSION DATE: 01/10/21 REFERRING PHYSICIAN: INTERPRETING PHYSICIAN: JONG DIETZ MD ECHOCARDIOGRAM REPORT ECHO CHARGES 4 ECHO COMPLETE Date: 01/16/21 CLINICAL DIAGNOSIS: HTN ECHOCARDIOGRAPHIC MEASUREMENTS (adult normal given) AC root (d.<3.7cm) 2.5 cm LV Septum d (<1.2 cm> 0.8 cm Valve Excursion 1.1 cm LV Septum (systole) 1.3 cm Left Atria (s.<4.0cm> 3.9 cm LVPW d(<1.2cm) 0.9 cm RV (d.<2.3cm) 2.1 cm LVPW (sytole) 1.2 cm LV diastole(<5.6CM) 5.8 cm MV E-F(>70mm/sec) cm LV systole 4.3 cm LVOT Diameter 1.3 cm MV exc.(>10mm) 0.8 cm Est.ejection fraction (50-75%) % DOPPLER: LVIT cm/sec A 118 cm/sec E 70 cm/sec LA cm/sec RVSP 18 mmHg LVOT 83 cm/sec AOP1/2T m/s Asc. Ao 163 cm/sec RVOT 60 cm/sec RA cm/sec PA 79 cm/sec AV Gradient Peak 10.6 mmHg AV Mean 4.8 mmHg AV Area 0.7 cm MV Gradient Peak 5.7 mmHg MV Mean 2.1 mmHg MV Area cm COMMENTS: Client Experience Administrator: Randolph OCHOA [place]: 3 Dr. Scott TAPE# Pericardial Effusion N DATE OF SERVICE: Adequate 2D, color flow imaging, spectral Doppler, and M-mode. FINDINGS: No LVH. LV internal dimensions normal. Wall motion normal. EF greater than or equal to 55%. Aortic valve is tricuspid. No evidence of stenosis by Doppler interrogation. Left atrium is normal at 3.9 cm. Mitral valve shows no prolapse. Trace MR. Right-sided chambers are grossly normal. Trace TR. ECHOCARDIOGRAM REPORT [id number] AMISH LOBATO TRANSINT:[id number] Voice Confirmation ID: [id number] DOCUMENT ID: [id number] JONG DIETZ MD at 0806 CC: [id number] DICTATION DATE: 01/16/21 1623 LINE PRODUCER: 01/16/21 2310 DIS IN 01/16/21 [id number] [place] [address]
--- NOTE | 2021-01-17 10:11 | MORECARE ---
CASE MANAGEMENT DISCHARGE SUMMARY PATIENT: AMISH LOBATO UNIT: [id number] ADM DATE: 01/10/21 AGE: 85 : 36 SEX: F ROOM/BED: D.2227 AUTHOR: JAMSHID,DOC PHYSICIAN: REFERRING PHYSICIAN: DARWIN BLACK MD DATE OF SERVICE: 01/17/21 Case Management Discharge Planning Summary COMMENTS ENTERED DATE: 01/16/21 13:20 CT COMMENT TYPE: Discharge Planning REVIEWER: Delmy Palumbo I spoke with patient's son Brant about his mother coming home today. He stated that he is her care professionals and they live together. He stated that he has a walker, cane, BSC, portable O2 and concentrator at home if she needs it. He does not have a car to come get her. CM will pay for her a taxi. I called the Taxi service and it will be $25.00 to get her to [facility]. The nurse will call him when she is discharged and he will be waiting for her outside to help her in. He would like [facility]. He also stated that his sister was flying in tomorrow to help with their mom. He said that when his friend get off work he will have him drive him to [facility] to mixing picker tender his mom's medication. He denies any other needs. Kaity Ward RN will send the referral over to [facility] REVIEW SUMMARY ANTICIPATED D/C DATE: EXPECTED LOS : CASE STATUS: DCP Initiated INITIAL REVIEW: 01/10/2021 INITIAL REVIEWER: Delmy Palumbo FINAL DISCHARGE DISPOSITION: : FINAL REVIEWER: FINAL REVIEW DATE: [facility] Focus Questions & Answers QUESTION: ANSWER : PROVIDER NETWORKING REVIEW DATE: 01/16/2021 SERVICE TYPE: Home Health Care REVIEWER: Kaity Ward REVIEW DATE: 01/16/2021 SERVICE TYPE: Home Health Care REVIEWER: Kaity Ward PATIENT: AMISH LOBATO ENCOUNTER: [id number] MEDICAL RECORD#: [id number] ADMISSION DATE: 01/10/2021 DISCHARGE DATE: 01/16/2021 ATTENDING MD: DARWIN SERRANO : AGE: 85 MARITAL STATUS: D DC PLAN ID: [id number] FACILITY: [facility] PRINTED ON: 01/17/21 10:11 CT All edits/amendments must be made on the electronic document DICTATION DATE: 01/17/21 1010 MALT HOUSE OPERATOR: VIVIAN 01/17/21 1010 RPT#: [id number] DC DATE:01/16/21 STATUS: DIS IN [facility] [address] [facility] [place] [address] END OF REPORT
--- NOTE | 2021-01-17 15:03 | PN ---
PATIENT:AMISH LOBATO MEDICAL RECORD: [id number] LOCATION:[facility] ADMISSION DATE: 01/10/21 PROGRESS NOTE DATE OF SERVICE: 01/16/2021 SUBJECTIVE: The patient's case was discussed with staff. OBJECTIVE: The patient is partially oriented. Her mood is euthymic. She has had no behavioral outbursts and certainly no thoughts of harming herself or others. ASSESSMENT: Dementia. PLAN: The patient's son is going to come and get her. She is going to live with him and he is going to assist and supervise her. Her long-term prognosis is guarded and followup should be with her primary care physician. There are no contraindications to discharge from a psychiatric standpoint. TRANSINT:[id number] Voice Confirmation ID: [id number] DOCUMENT ID: [id number] XIOMARA CORONA MD at 1503 CC: [id number] DICTATION DATE: 01/16/21 1548 COLORING ROOM MAN: 01/16/21 2131 DIS IN 01/16/21 [facility] [address] [place] [address]
== END 2021-01-16 16:40 | disposition home health service (06) | DRG 690 ==
LOC: D.ER 13:46 → D.MS 19:15
PROVIDERS: Family Medicine; ADMIT Family Medicine; ATTEND Family Medicine
DX: N39.0 Urinary tract infection, site not specified (principal); G93.40 Encephalopathy, unspecified; E03.9 Hypothyroidism, unspecified; E78.5 Hyperlipidemia, unspecified; M19.90 Unspecified osteoarthritis, unspecified site; I10 Essential (primary) hypertension; G30.1 Alzheimer's disease with late onset; F02.80 Dementia in other diseases classified elsewhere, unspecified severity, without behavioral disturbance, psychotic disturbance, mood disturbance, and anxiety; B96.20 Unspecified Escherichia coli [E. coli] as the cause of diseases classified elsewhere; F41.9 Anxiety disorder, unspecified; K44.9 Diaphragmatic hernia without obstruction or gangrene; H70.90 Unspecified mastoiditis, unspecified ear; R62.7 Adult failure to thrive; R00.1 Bradycardia, unspecified